=== PATIENT | male | born 1960 | race Caucasian/White ===

== ENCOUNTER 2024-01-22 05:40 | Day surgery (SDC) | payer OTHER ==
[2024-01-18 08:37] VITALS: BP 127/87
[~2024-01-22] VITALS: Ht 188 cm; Wt 100.0 kg
[~2024-01-22 05:40] MED LIST: ADULT LOW DOSE81 MG PO; DILT-XR120 MG PO; ELIQUIS5 MG PO; MIDAZOLAM HCL 5 MG/5 ML VIAL IV PRN; OMEPRAZOLE20 MG PO; fentaNYL citrate 100 MCG/2 ML VIAL IV PRN
[2024-01-22 06:03] VITALS: BP 135/87
[2024-01-22] MEDS ORDERED: ACETAMINOPHEN-1 EAC1 PO (06:09)
[2024-01-22] MEDS ORDERED: IBLOOD GLUCOSE TEST STRIP 1 EA TEST VI PRN (07:00)
[2024-01-22] MEDS ORDERED: CEFAZOLIN SODIUM 2 GM/20 ML SYR IV SCH (07:00)
[2024-01-22] MEDS ORDERED: LIDOCAINE HCL 1% 5 ML SDV INJ ONE (07:00)
[2024-01-22] MEDS ORDERED: LACTATED RINGER'S 1,000 ML IV SCH (07:00)
[2024-01-22] MEDS ORDERED: propofoL 200 MG/20 ML VIAL ONE ×2 (07:25→07:45)
[2024-01-22] MEDS ORDERED: fentaNYL citrate 100 MCG/2 ML VIAL ONE (07:25)
[2024-01-22] MEDS ORDERED: LIDOCAINE HCL 2% 5 ML SDV ONE (07:25)
--- NOTE | 2024-01-22 07:42 | NUR ---
UNABLE TO VISIT DURING SPIRITUAL CARE ROUNDS; PT GONE FOR PROCEDURE. PROVIDED PRAYER.
--- NOTE | 2024-01-22 07:59 | NUR ---
01/22/24 Luzma Ruffin 0754- PT ARRIVES TO PACU NONAROUSABLE TO STIMULI. RESP EVEN AND UNLABORED. OXYGEN SAT HIGH 90'S ON 4L VIA CO2 NC. 0759- PT AROUSABLE TO VOICE. PT THANKFUL THE PROCEDURE IS OVER.
[2024-01-22 08:24] VITALS: BP 162/102
--- NOTE | 2024-01-22 10:51 | OR ---
[facility] [address], [place] [address] Signed DATE OF OPERATION: 01/22/2024 SURGEON: Nicole Guerrero MD PREOPERATIVE DIAGNOSES: 1. Small hiatal hernia. 2. Gastroesophageal reflux disease. 3. Daily alcohol use. 4. Daily marijuana use. POSTOPERATIVE DIAGNOSES: 1. GE junction at 38 cm. 2. Small hiatal hernia. 3. Mild diffuse distal gastritis. PROCEDURE: EGD with CLOtest and biopsies of the antrum and GE junction. ESTIMATED BLOOD LOSS: None. INDICATIONS: Robbin is a 63-year-old gentleman, asked to see me for upper endoscopy. He has a small hiatal hernia, which we saw back in 2005 at the age of 45. He tells me a friend just of esophageal cancer related to Horton's esophagus. That made him very concerned. He had been to his primary care provider. He had also described upper and lower endoscopy in 2019 at the age of 59 over in [place], [place]. We have been unable to track down those results. He said he uses Nexium and Tums and seems to do well in that regard. He thinks he had distal esophageal dysphagia few years ago, but when he lost over 50 pounds that went away. He said he still drinks a lot of alcohol and uses marijuana on a daily basis. 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 In the office, I gave him a pamphlet on upper endoscopy. We had reviewed the nature of the test. There is risk including, but not limited to gas bloating, crampy abdominal pain, bleeding, perforation requiring surgery, and missed diagnosis. Also, we had discussed the need for monitored anesthesia care given his daily alcohol and marijuana use. He had expressed understanding and wished to proceed. PROCEDURE IN DETAIL: Robbin was taken into our endoscopy suite and placed in the supine semi-recumbent position. He was given IV Ancef due to his knee replacement. He was given monitored Electronically Signed By: NICOLE GUERRERO MD 01/22/24 1051 PATIENT NAME: ROBBIN PAGE OPERATIVE REPORT DATE OF : 60 REPORT #: [id number] PHYSICIAN: NICOLE GEURRERO MD PCP: ALEXIS MOLINA MD REPORT IS CONFIDENTIAL AND NOT TO BE RELEASED WITHOUT AUTHORIZATION [facility] [address], [place] [address] Signed anesthesia care with propofol infusion per our nurse corrugator machine operator. A bite block was utilized for the case. The adult gastroscope was introduced and advanced under direct visualization of the camera without difficulty. The duodenum and pyloric channel were unremarkable. He had some very mild diffuse erythematous changes in his stomach, very common for people who smoke. There were no ulcerations. We went ahead and took a biopsy of the antrum for pathologic review as well as CLOtest. Upon retroflexion of the scope, he has what appears to be a very tiny hiatal hernia. The scope was withdrawn up through the area of the GE junction, which was compliant without stricture. There was no evidence of gastric or esophageal varices. There was no disruption to the Z-line. There was no Horton's mucosa. He had just a little irritation around the Z-line. We went ahead and took a biopsy along the edge of the Z-line for pathologic review. His distal, middle and upper esophagus were unremarkable. The arytenoids were a little edematous just from his smoking. The vocal cords seemed to be unremarkable. After this, the gas was suctioned out and the gastroscope removed. Robbin tolerated the procedure quite well. RECOMMENDATIONS: I will see Robbin back in my office in 7 to 14 days to review his results. It looks like he is doing fine with medical therapy. Nicole Guerrero MD ALB/MODL /[id number] cc: MD Alexis Jenkins MD Copies: NICOLE GUERRERO MD, ROBERT D DMD ~ Electronically Signed By: NICOLE GUERRERO MD 01/22/24 1051 PATIENT NAME: ROBBIN PAGE OPERATIVE REPORT DATE OF : 60 REPORT #: [id number] PHYSICIAN: NICOLE GUERRERO MD PCP: ALEXIS MOLINA MD REPORT IS CONFIDENTIAL AND NOT TO BE RELEASED WITHOUT AUTHORIZATION
== END 2024-01-22 08:35 | disposition home or self-care (01) ==
LOC: DS 05:40
PROVIDERS: ATTEND Colon & Rectal Surgery
PROC: 0DB68ZX Excision of Stomach, Via Natural or Artificial Opening Endoscopic, Diagnostic (ICD-10-PCS; 2024-01-22)
PROC: 0DB48ZX Excision of Esophagogastric Junction, Via Natural or Artificial Opening Endoscopic, Diagnostic (ICD-10-PCS; principal; 2024-01-22 07:30)
DX: K29.70 Gastritis, unspecified, without bleeding (principal); K44.9 Diaphragmatic hernia without obstruction or gangrene; K21.9 Gastro-esophageal reflux disease without esophagitis; F10.90 Alcohol use, unspecified, uncomplicated; F12.10 Cannabis abuse, uncomplicated; M19.90 Unspecified osteoarthritis, unspecified site
CPT/HCPCS: 36415; 87077; J0690; J2001; J2704; J3010; J7121

== ENCOUNTER 2025-03-17 07:42 | Emergency (ER) | payer OTHER ==
[~2025-03-17] VITALS: Ht 188 cm; Wt 103.1 kg
[~2025-03-17 07:42] MED LIST changes: +ACETAMINOPHEN-1 EAC1 PO; -MIDAZOLAM HCL 5 MG/5 ML VIAL IV PRN; -fentaNYL citrate 100 MCG/2 ML VIAL IV PRN
[2025-03-17 08:33] LABS: BASOPHILS 0.5 % (0.2-1.2); EOSINOPHILS 2.4 % (0.8-7.0); HEMATOCRIT 42.7 % (40.1-51.0); HEMOGLOBIN 14.1 g/dL (13.7-17.5); LYMPHOCYTES 19.5 % (21.8-53.1); MCH 28.4 PG (25.7-32.2); MCV 85.9 fL (79.0-92.2); MONOCYTES 10.5 % (5.3-12.2); NEUTROPHILS 66.8 % (34.0-67.9); PLATELET COUNT 208 K/uL (163-337); RBC 4.97 M/uL (4.63-6.08)
[2025-03-17 08:49] LABS: INR 1.01 (0.80-1.30); PROTIME 12.6 Sec (11.2-14.2)
[2025-03-17 08:53] LABS: ALBUMIN 3.5 g/dL (3.4-5.0); ALBUMIN/GLOBULIN RATIO 1.21 (1.1-2.4); ANION GAP 11.4 (7-21); BILIRUBIN, TOTAL 0.4 mg/dL (0.2-1.0); BUN/CREATININE RATIO 14.58 (6.0-28.6); CALCIUM 8.7 mg/dL (8.5-10.1); CREATININE, SERUM 0.96 mg/dL (0.70-1.30); POTASSIUM 4.4 mmol/L (3.5-5.1); PROTEIN, TOTAL 6.4 g/dL (6.4-8.2)
[2025-03-17 09:24] VITALS: BP 149/94
== END 2025-03-17 09:24 | disposition home or self-care (01) ==
LOC: ED 07:42
PROVIDERS: Emergency Medicine
DX: M79.89 Other specified soft tissue disorders (principal); Z88.8 Allergy status to other drugs, medicaments and biological substances; Z79.82 Long term (current) use of aspirin; Z79.899 Other long term (current) drug therapy
CPT/HCPCS: 36415; 80053; 85025; 85610; 93971; 99284-25